=== PATIENT | female | born 1955 | race Caucasian/White ===

== ENCOUNTER → 2022-05-21 | Day surgery (SDC) | payer MEDICARE, OTHER ==
[~2022-05-21] VITALS: Ht 162.6 cm; Wt 74.8 kg
[~2022-05-21] MED LIST: CALCIUM + VITA1 EACH PO; DAILY VALUE1 EACH PO; FIBER500 MG PO; PROBIOTIC1 EACH PO
== END | disposition home or self-care (01) ==
LOC: FAS 08:17
DX: Z12.11 Encounter for screening for malignant neoplasm of colon (principal); D12.3 Benign neoplasm of transverse colon; J45.909 Unspecified asthma, uncomplicated; Z90.49 Acquired absence of other specified parts of digestive tract
CPT/HCPCS: 88305; J2704; J7120